=== PATIENT | male | born 1975 | race Caucasian/White ===

== ENCOUNTER 2020-06-03 14:55 | Emergency (ER) | payer MEDICAID ==
[~2020-06-03] VITALS: Ht 185.4 cm; Wt 81.8 kg
[2020-06-03 15:26] VITALS: BP 142/85
== END 2020-06-03 16:26 | disposition left against medical advice (07) ==
LOC: EMS 15:01
DX: F29 Unspecified psychosis not due to a substance or known physiological condition (principal); Z53.21 Procedure and treatment not carried out due to patient leaving prior to being seen by health care provider